=== PATIENT | male | born 1985 | race African-American/Black ===

== ENCOUNTER 2021-07-27 10:15 | Emergency (ER) | payer OTHER ==
[~2021-07-27] VITALS: Ht 172.7 cm; Wt 63.0 kg
[2021-07-27 10:24] VITALS: BP 138/87
--- NOTE | 2021-07-27 12:17 | NUR ---
Patient given discharge instructions and they have confirmed that they understand the instructions. Patient ambulatory with steady gait.
== END 2021-07-27 12:28 | disposition home or self-care (01) ==
LOC: ED 12:25
DX: S29.012A Strain of muscle and tendon of back wall of thorax, initial encounter (principal); M25.511 Pain in right shoulder; M25.512 Pain in left shoulder; V49.19XA Passenger injured in collision with other motor vehicles in nontraffic accident, initial encounter; Y93.89 Activity, other specified; Y92.410 Unspecified street and highway as the place of occurrence of the external cause; Y99.8 Other external cause status
CPT/HCPCS: 71045; 99283